=== PATIENT | male | born 1965 | race American Indian/Alaskan Native ===

== ENCOUNTER 2016-11-09 04:57 | Emergency (ER) | payer OTHER ==
[2016-11-09 05:23] VITALS: BP 162/68
== END 2016-11-09 08:01 | disposition left against medical advice (07) ==
LOC: ED 04:57
DX: H57.8 Other specified disorders of eye and adnexa (principal); Z53.21 Procedure and treatment not carried out due to patient leaving prior to being seen by health care provider